=== PATIENT | male | born 1970 | race Caucasian/White ===

== ENCOUNTER 2017-02-16 06:27 | Day surgery (SDC) | payer BC ==
[2017-02-16] MEDS ORDERED: Lactated Ringers 1,000 ML IV SCH (06:45)
[2017-02-16] MEDS ORDERED: Sodium Chloride 0.9% 10 ML Syringe FLUSH PRN (06:45)
[2017-02-16] MEDS ORDERED: Propofol 200 MG/20 ML SDV IV ONE (08:05)
--- NOTE | 2017-02-16 08:28 | PREOP ---
ADMISSION DATE: 02/16/2017 CHIEF COMPLAINT: History of hematochezia. HISTORY OF PRESENT ILLNESS: This is a 46-year-old white male, who is referred with a 2-year history of bleeding per rectum, intermittent in nature, has recently gotten worse. He denies any weight loss, constipation, has never had a scope. He does have a family history of colon polyps with his mother. His son has apparently had some kind of colon surgery done in the past. He does feel like he has hemorrhoids and that they prolapse on occasion. MEDICATIONS: Include: 1. Levothyroxine 112 mcg daily. 2. Lipitor 10 mg at bedtime. 3. Zoloft 50 mg daily. 4. Prilosec 20 mg daily. 5. Flexeril 10 mg daily. 6. ProAir inhaler 2 inhalations orally every 4 hours as needed. 7. Extra Strength Tylenol as needed. ALLERGIES: He has an allergy to penicillin, which causes anaphylaxis. PAST MEDICAL HISTORY: Significant for hyperlipidemia, hypothyroidism, gastroesophageal reflux disease. PAST SURGICAL HISTORY: No surgical history. FAMILY HISTORY: Significant for lipoma and hypertension as well as a regular heartbeat with his mother. He is with 4 children. He is a former smoker and has about 24 cans of beer per week. REVIEW OF SYSTEMS: CONSTITUTIONAL: The patient is positive constitutionally for chills and diaphoresis. EYES: Visual disturbance. RESPIRATORY: Cough and wheezing. CARDIOVASCULAR: Negative. GASTROINTESTINAL: Positive for blood in stools. MUSCULOSKELETAL: Positive for arthralgias. SKIN: Positive for rash. PHYSICAL EXAMINATION: VITAL SIGNS: Nursing vital signs were reviewed, and they are stable. GENERAL: This is a well-developed, well-nourished white male, appearing in no acute distress. HEENT: He is normocephalic and atraumatic. LUNGS: Clear to auscultation. HEART: Regular rate and rhythm. ABDOMEN: Soft and nontender. NEUROLOGIC: He is alert. SKIN: Warm and dry. ASSESSMENT: Hematochezia. PLAN: Colonoscopy. Procedure and risks explained to the patient, to include bleeding, infection, and perforation. The patient expresses understanding, and he asked us to proceed. /[id number] /MODL
--- NOTE | 2017-02-16 08:43 | PCM.OPNOTE ---
- General Post-Op/Procedure Note Date of Surgery/Procedure: 02/16/17 Operative Procedure(s): c scope Findings: grade 3 hemorrhoids Pre Op Diagnosis: hematochezia Post-Op Diagnosis: grade 3 hemorrhoids Primary Surgeon: Oj Ma Anesthesia Provider: Silas Ding Complications: None Condition: Good Free Text/Narrative:: see note
[2017-02-16 10:26] VITALS: BP 123/69
--- NOTE | 2017-02-16 16:33 | OR ---
DATE OF OPERATION: 02/16/2017 SURGEON: Oj Ma MD PROCEDURE PERFORMED: Colonoscopy. PREOPERATIVE DIAGNOSIS: Hematochezia. POSTOPERATIVE DIAGNOSIS: Grade 3 hemorrhoids. INDICATIONS FOR PROCEDURE: This is a 46-year-old white male, who presents with a history of intermittent hematochezia. He was offered and accepted C-scope. DESCRIPTION OF OPERATION: After an excellent IV sedation was administered, digital rectal exam was performed. The patient had evidence of external hemorrhoids. The flexible colonoscope was inserted and advanced to the cecum without difficulty. The following findings were noted. The prep was excellent. Ascending colon, unremarkable. Transverse colon, unremarkable. Descending colon, unremarkable. Sigmoid and rectum unremarkable. Retroflexing the scope, the patient has grade 3 hemorrhoids. Colon was deflated. Scope was removed. The patient tolerated the procedure well. /[id number] /MODL
== END 2017-02-16 10:10 | disposition home or self-care (01) ==
LOC: FB.SDS 06:27
PROVIDERS: ATTEND Surgery
DX: K64.2 Third degree hemorrhoids (principal); K92.1 Melena; E78.5 Hyperlipidemia, unspecified; E03.9 Hypothyroidism, unspecified; K21.9 Gastro-esophageal reflux disease without esophagitis; Z83.71 Family history of colonic polyps; Z88.0 Allergy status to penicillin; Z79.899 Other long term (current) drug therapy; Z87.891 Personal history of nicotine dependence
CPT/HCPCS: 45378; J2704; J7120